=== PATIENT | female | born 1975 | race Caucasian/White ===

== ENCOUNTER 2020-07-14 01:51 | Emergency (ER) | payer OTHER ==
[~2020-07-14 01:51] MED LIST: NAPROSYN EC 37375 MG PO
[2020-07-14 03:44] LABS: HEMOGLOBIN 15.6 gm/dl (12.3-15.3); RED BLOOD COUNT 5.06 M/UL (4.00-5.10); WHITE BLOOD COUNT 11.2 K/UL (4.5-11.0)
[2020-07-14 04:06] LABS: BUN/CREATININE RATIO 22 (0-10)
== END 2020-07-14 06:30 | disposition home or self-care (01) ==
LOC: ER1 01:51
PROVIDERS: Emergency Medicine
DX: R07.0 Pain in throat (principal); I11.9 Hypertensive heart disease without heart failure
CPT/HCPCS: 70491; 71045; 80053; 81001; 82550; 82553; 83605; 83690; 84484; 85025; 99284; Q9967

== ENCOUNTER 2021-10-29 10:47 | Emergency (ER) | payer MEDICARE, OTHER ==
[2021-10-29 11:49] LABS: HEMOGLOBIN 12.2 gm/dl (12.3-15.3); RED BLOOD COUNT 3.82 M/UL (4.00-5.10); WHITE BLOOD COUNT 7.2 K/UL (4.5-11.0)
[2021-10-29 14:21] LABS: BUN/CREATININE RATIO 18 (0-10)
== END 2021-10-29 19:10 | disposition home or self-care (01) ==
LOC: ER1 10:47 → EDBD 10:47 → ER1 10:47
PROVIDERS: Emergency Medicine
DX: F41.9 Anxiety disorder, unspecified (principal); I10 Essential (primary) hypertension; F17.210 Nicotine dependence, cigarettes, uncomplicated; Z20.822 Contact with and (suspected) exposure to COVID-19
CPT/HCPCS: 51702; 71045; 80053; 80307; 81001; 84439; 84443; 84484; 84703; 85025; 93005; 99284; G0480; U0002

== ENCOUNTER 2022-01-14 23:18 | Emergency (ER) | payer OTHER ==
[2022-01-15 00:07] LABS: HEMOGLOBIN 13.9 gm/dl (12.3-15.3); RED BLOOD COUNT 4.35 M/UL (4.00-5.10)
[2022-01-15 00:38] LABS: BUN/CREATININE RATIO 31 (0-10)
== END 2022-01-15 04:26 | disposition home or self-care (01) ==
LOC: ER1 23:18
PROVIDERS: Emergency Medicine
DX: R45.851 Suicidal ideations (principal); F17.200 Nicotine dependence, unspecified, uncomplicated
CPT/HCPCS: 80053; 80307; 81001; 83735; 84484; 84703; 85025; 93005; 99285; G0480